=== PATIENT | male | born 1940 | race Caucasian/White ===

== ENCOUNTER → 2017-01-02 | Day surgery (SDC) | payer OTHER ==
[~2017-01-02] MED LIST: ACETAMINOPHEN 1000 MG/100 ML VIAL IV ONE; BUPIVACAINE/EPINEPHRINE 0.25% 50 ML VIAL ONE; KETOROLAC TROMETHAMINE 30 MG/ML (IVP) VIAL IV PUSH ONE; LACTATED RINGER'S 1000 ML INJ 1,000 ML ONE; LIDOCAINE 1%/EPINEPHrine 1:100,000 SOLN 20 ML VIAL ONE; LIDOCAINE HCL 1% PF 30 ML VIAL ONE; NEOMYCIN/POLYMYXIN/BACITRACIN OINT 15 GM TUBE ONE; ONDANSETRON HCL 4 MG/2 ML VIAL IV PUSH ONE; PROPOFOL 200 MG/20 ML AMP IV ONE; ceFAZolin INJ 1,000 MG VIAL ONE
--- NOTE | 2017-01-02 19:30 | TN ---
cc: JEREMY WELCH M.D. DATE OF SURGERY 01/02/2017 PREOPERATIVE DIAGNOSIS Mass located on the volar aspect of the distal interphalangeal joint of the dominant right thumb, the mass which causes significant tenderness, pain and inability to function properly. POSTOPERATIVE DIAGNOSIS Mass located on the volar aspect of the distal interphalangeal joint of the dominant right thumb, the mass which causes significant tenderness, pain and inability to function properly. PROCEDURE Removal of this mass, resultant defect of 2 x 2 cm. This required a tissue rearrangement construction for a second defect of 4 x 2 cm. SURGEON Jeremy Welch MD FACS ANESTHESIA LMA, general plus a total of 10 mL of 1% lidocaine plain. ESTIMATED BLOOD LOSS Minimal. COMPLICATIONS None. PROCEDURE Was properly consented, marked properly. Anesthetized the skin was sterilized with Betadine solution and sterile draping applied. A digital tourniquet was done for a total of 3 minutes in which the excision was carried out. Electrocauterization was done utilizing bipolar. The specimen was sent to pathology for analysis, being a significant verruca. The patient had been dealing with this for many years now. This left a defect of 2 cm on the volar aspect of the distal interphalangeal joint of the thumb of the dominant right hand. A V to Y tissue arrangement construction was thereafter tailored and woven into the defect and inset utilizing 5-0 chromic Monocryl suture and 4-0 Prolene suture in an interrupted and a running fashion. The tourniquet again that was left for about 3 minutes was properly removed after meticulous hemostasis and the flap was properly inset. Dressings were applied in the usual fashion including 4x4s, antibiotic ointment and Xeroform gauze was applied thereafter as well. This was covered with tape. Overall the patient tolerated the procedure well. He was awakened, extubated in the operating room. Again good viability of the tissue was noted at the end of the case. The patient tolerated the procedure well. MD SONG Appiah/LATRICE /5:29 PM /7:08 PM KATHRIN
== END | disposition home or self-care (01) ==
LOC: ESDC 09:42
PROVIDERS: ATTEND Plastic Surgery
DX: B07.9 Viral wart, unspecified (principal)
CPT/HCPCS: 00400; 14040; 88305; J0131; J0690; J1885; J2405; J3010; J7120